=== PATIENT | female | born 1970 | race Caucasian/White ===

== ENCOUNTER 2017-11-10 09:37 | Day surgery (SDC) | payer MEDICARE, OTHER, MEDICAID ==
[~2017-11-10] VITALS: Ht 152.4 cm; Wt 63.6 kg
[~2017-11-10 09:37] MED LIST: LIDOcaine Viscous 15ml cup ONE; MIDAZolam 5mg/5ml vial ONE; fentaNYL/PF 50MCG/1 ML 2ML syringe ONE
[2017-11-10 09:45] VITALS: BP 127/61
[2017-11-10] MEDS ORDERED: CIPROFLOXA PO (10:21)
[2017-11-10] MEDS ORDERED: HYDR-3972 PO (10:22)
[2017-11-10] MEDS ORDERED: VITA1TAB61 PO (10:22)
[2017-11-10 10:36] VITALS: BP 125/52
[2017-11-10 10:46] VITALS: BP 109/54
[2017-11-10 10:56] VITALS: BP 98/65
[2017-11-10 11:06] VITALS: BP 100/52
== END 2017-11-10 11:35 | disposition home or self-care (01) ==
LOC: GI LAB 09:37
PROVIDERS: ATTEND Internal Medicine Gastroenterology
DX: K29.50 Unspecified chronic gastritis without bleeding (principal); K44.9 Diaphragmatic hernia without obstruction or gangrene; K31.89 Other diseases of stomach and duodenum; Q90.9 Down syndrome, unspecified; Z79.2 Long term (current) use of antibiotics; Z95.2 Presence of prosthetic heart valve; Z79.891 Long term (current) use of opiate analgesic
CPT/HCPCS: 43239; J2250; J3010; J7030; 88305; 88313; 88342; A4620; G0500